=== PATIENT | female | born 1980 | race Hispanic/Latino ===

== ENCOUNTER 2019-08-22 14:06 | Emergency (ER) | payer MEDICAID, OTHER ==
[2019-08-22] MEDS ORDERED: ACETAMINOPHEN EXTRA STRENGTH 500 MG TABLET ONE (14:43)
== END 2019-08-22 15:27 | disposition home or self-care (01) ==
LOC: EDH 14:06
DX: S06.0X0A Concussion without loss of consciousness, initial encounter (principal); W22.8XXA Striking against or struck by other objects, initial encounter; Y93.89 Activity, other specified; Y92.89 Other specified places as the place of occurrence of the external cause; Y99.8 Other external cause status

== ENCOUNTER 2020-10-30 07:50 | Inpatient (IN) | payer SELFPAY ==
[2020-10-30] VITALS (20 sets, daily range): BP systolic 94–116; BP diastolic 41–68
[~2020-10-30] VITALS: Ht 154.9 cm; Wt 96.6 kg
[2020-10-30 08:19] LABS: APPEARANCE,URINE Clear (CLEAR); BILIRUBIN,URINE Negative (NEGATIVE); COLOR,URINE Yellow (YELLOW); GLUCOSE, URINE (UA) Negative (NEGATIVE); KETONES,URINE Negative (NEGATIVE); LEUKOCYTE ESTERASE ,URINE Negative (NEGATIVE); NITRATE,URINE Negative (NEGATIVE); OCCULT BLOOD,URINE Trace (NEGATIVE); PH,URINE 5.5 (5.0-8.0); PROTEIN,URINE Negative (NEGATIVE); UROBILINOGEN,URINE 0.2 mg/dL (0.2-1.0)
[2020-10-30 08:25] LABS: HCG,QUAL RESULT NEGATIVE (NEGATIVE)
[2020-10-30] MEDS ORDERED: 0.9%NACL 1000ML 1,000 ML IV ONE ×2 (08:27→15:04)
[2020-10-30] MEDS ORDERED: FAMOTIDINE 20MG VIAL IV ONE (08:27)
[2020-10-30] MEDS ORDERED: ONDANSETRON 4MG INJ ONE ×2 (08:27→17:55)
[2020-10-30 08:32] LABS: BASOPHILS % (AUTO) 0.6 % (0.0-5.0); EOSINOPHILS % (AUTO) 1.9 % (0.0-8.0); HEMATOCRIT 34.5 % (36-48); LYMPHOCYTES % (AUTO) 33.7 % (21.0-51.0); MEAN CORPUSCULAR HEMOGLOBIN 26.3 pg (27.0-33.0); MEAN CORPUSCULAR VOLUME 79.5 fL (79-99); NEUTROPHILS % (AUTO) 58.3 % (40.0-77.0); PLATELET COUNT (AUTO) 324 K/uL (130-400); RED BLOOD CELL COUNT(AUTO) 4.34 MIL/uL (4.00-5.50); RED CELL DISTRIBUTION WIDTH 15.3 % (11.0-15.5); WHITE BLOOD COUNT (AUTO) 13.3 K/uL (4.8-10.8)
[2020-10-30 08:40] LABS: CREATININE 0.6 mg/dL (0.5-1.5); POTASSIUM 3.7 mmol/L (3.5-5.1)
[2020-10-30 08:44] LABS: ALBUMIN 3.1 g/dL (3.5-5.0); BILIRUBIN,TOTAL 0.3 mg/dL (0.2-1.0); TOTAL PROTEIN, SERUM 7.9 g/dL (6.0-8.3)
[2020-10-30 08:44] LABS: BACTERIA,URINE Rare /HPF (None Seen); RBC,URINE 0-1 /HPF (0-1); SQUAMOUS EPITHELIAL CELL,UR Few /HPF (0-2); WBC,URINE 0-1 /HPF (0-1)
[2020-10-30 08:55] LABS: AMPHET/METH SCREEN,URINE NEGATIVE (NEGATIVE); BARBITURATE SCREEN, URINE NEGATIVE (NEGATIVE); BENZODIAZEPINES SCREEN,URINE NEGATIVE (NEGATIVE); CANNABINOID SCREEN,URINE NEGATIVE (NEGATIVE); COCAINE SCREEN,URINE NEGATIVE (NEGATIVE); OPIATE SCREEN,URINE NEGATIVE (NEGATIVE); PHENCYCLIDINE SCREEN,URINE NEGATIVE (NEGATIVE)
[2020-10-30] MEDS ORDERED: MORPHINE 4 MG SYG ONE (10:09)
[2020-10-30] MEDS ORDERED: ZOSYN 3.375GM+NS 50ML 50 ML IV ONE (10:09)
[2020-10-30] MEDS: ZOSYN 3.375GM+NS 50ML 50 ML IV SCH ×2 (13:45→20:35)
[2020-10-30] MEDS ORDERED: POTASSIUM CHLORIDE 10% ELIXIR 20 MEQ/15 ML UDCUP PO PRN (13:45)
[2020-10-30] MEDS ORDERED: KCL 20 MEQ ERTAB PO PRN (13:45)
[2020-10-30] MEDS ORDERED: LIDOCAINE HCL-MPF 1% 2ML VIAL IV PRN ×2 (13:45)
[2020-10-30] MEDS: 0.9%NACL 1000ML 1,000 ML IV SCH ×2 (13:45→23:31)
[2020-10-30] MEDS ORDERED: POTASSIUM CHLORIDE 20MEQ/100ML 100 ML IV PRN ×2 (13:45)
[2020-10-30] MEDS ORDERED: MORPHINE 2 MG SYG ONE (15:05)
[2020-10-30] MEDS ORDERED: MIDAZOLAM HCL 1 MG/ML 2ML VIAL ONE (17:52)
[2020-10-30] MEDS ORDERED: SUCCINYLCHOLINE CHLORIDE 20 MG/ML 10 ML VIAL ONE (17:52)
[2020-10-30] MEDS ORDERED: LIDOCAINE PF 100MG/5ML (2%) SYRINGE 5ML ONE (17:52)
[2020-10-30] MEDS ORDERED: DEXAMETHASONE SOD PHOSPHATE 10MG/ML 1ML VIAL ONE (17:52)
[2020-10-30] MEDS ORDERED: PROPOFOL 10 MG/ML 20ML VIAL IV ONE ×2 (17:53→18:42)
[2020-10-30] MEDS ORDERED: ROCURONIUM 10MG/1ML SYR 10 MG/ML ML ONE (17:53)
[2020-10-30] MEDS ORDERED: FENTANYL CITRATE PF 50 MCG/1 ML 2ML VIAL ONE (17:55)
[2020-10-30] MEDS ORDERED: BUPIVACAINE/PF 0.5% 30ML VIAL ONE (18:01)
[2020-10-30] MEDS ORDERED: DEXAMETHASONE SOD PHOSPHATE 4 MG/ML 1ML VIAL ONE (18:23)
[2020-10-30] MEDS ORDERED: KETOROLAC 30MG VIAL (30MG/ML) ONE (18:37)
[2020-10-30] MEDS ORDERED: NEOSTIGMINE 5MG/5ML SYR IV ONE (18:38)
[2020-10-30] MEDS ORDERED: GLYCOPYRROLATE 1 MG/5 ML SYRINGE ONE (18:38)
[2020-10-30] MEDS ORDERED: MEPERIDINE-PF 25 MG/ML SYG ONE ×2 (19:03→19:10)
[2020-10-30] MEDS: FAMOTIDINE 20MG VIAL IV SCH (20:34)
[2020-10-30] MEDS: ONDANSETRON 4MG INJ IVP PRN (20:35)
[2020-10-31] VITALS: BP 108/67
[2020-10-31] MEDS: MORPHINE 2 MG SYG IVP PRN ×2 (02:19→08:06)
[2020-10-31] MEDS: ONDANSETRON 4MG INJ IVP PRN (02:19)
[2020-10-31] MEDS: ZOSYN 3.375GM+NS 50ML 50 ML IV SCH (05:01)
[2020-10-31 05:23] LABS: HEMATOCRIT 31.9 % (36-48); MEAN CORPUSCULAR HEMOGLOBIN 26.5 pg (27.0-33.0); MEAN CORPUSCULAR HGB CONC 33.2 g/dL (32.0-36.0); MEAN CORPUSCULAR VOLUME 79.8 fL (79-99); RED CELL DISTRIBUTION WIDTH 15.3 % (11.0-15.5); WHITE BLOOD COUNT (AUTO) 10.6 K/uL (4.8-10.8)
[2020-10-31 05:45] LABS: CREATININE 0.5 mg/dL (0.5-1.5); POTASSIUM 4.2 mmol/L (3.5-5.1)
[2020-10-31 06:02] VITALS: BP 94/56
[2020-10-31] MEDS: FAMOTIDINE 20MG VIAL IV SCH (08:06)
[2020-10-31 08:30] VITALS: BP 100/52
[2020-10-31] MEDS: 0.9%NACL 1000ML 1,000 ML IV SCH (09:45)
[2020-10-31] MEDS ORDERED: AMOX-426 PO (11:35)
[2020-10-31 13:50] VITALS: BP 121/64
== END 2020-10-31 15:00 | disposition home or self-care (01) | DRG 342 ==
LOC: EDH 07:50 → EDHIP 07:51 → 3AH 19:56
PROVIDERS: ADMIT Internal Medicine Critical Care Medicine; ATTEND Internal Medicine Critical Care Medicine
PROC: 0DTJ4ZZ Resection of Appendix, Percutaneous Endoscopic Approach (ICD-10-PCS; principal; 2020-10-30 18:31)
DX: K35.80 Unspecified acute appendicitis (principal); Z68.41 Body mass index [BMI] 40.0-44.9, adult; E66.9 Obesity, unspecified; Z90.710 Acquired absence of both cervix and uterus
CPT/HCPCS: 36415; 74176; 80048; 80053; 80305; 81001; 81025; 85025; 85027; 87040; 88304; A4344; G0378; J0330; J1100; J1885; J2001; J2175; J2250; J2270; J2405; J2543; J2704; J2710; J3010; J3490; J7030; J7120